=== PATIENT | male | born 1970 | race Hispanic/Latino ===

== ENCOUNTER 2018-04-10 07:02 | Day surgery (SDC) | payer MEDICAID ==
[2018-04-10] MEDS ORDERED: XYLOCAINE MPF 2% ONE (08:52)
[2018-04-10] MEDS ORDERED: DILAUDID ONE (08:54)
[2018-04-10] MEDS ORDERED: DIPRIVAN 10 MG/ML IV ONE ×2 (08:54→09:54)
[2018-04-10] MEDS ORDERED: NACL BACTERIOSTATIC INFILTRATI ONE (08:56)
[2018-04-10] MEDS ORDERED: ZOFRAN ONE (08:57)
[2018-04-10] MEDS ORDERED: PEPCID IV NR (09:00)
[2018-04-10] MEDS ORDERED: VERSED IV NR (09:00)
[2018-04-10] MEDS ORDERED: NACL 0.9% 1000 ML 1,000 ML IV SCH (09:00)
[2018-04-10] MEDS ORDERED: ANCEF/STERILE WATER 2 GM/20 ML IV NR (09:00)
--- NOTE | 2018-04-10 09:02 | XRay Report ---
AP ABDOMEN: HISTORY: Renal stone. The abdominal gas pattern is unremarkable. No masses or organomegaly is identified and there is no gross evidence of free air or fluid. There are numerous tiny calcifications overlying both kidney shadows consistent with multiple calyceal stones. No obvious calcifications over the course of the ureters. IMPRESSION: Bilateral nephrolithiasis.
[2018-04-10] MEDS ORDERED: PROAIR IH NR (09:30)
[2018-04-10] MEDS ORDERED: ROBINUL ONE (09:57)
[2018-04-10 11:42] VITALS: BP 138/82
--- NOTE | 2018-04-10 12:54 | Short Stay Summary ---
Short Stay Documentation Date of service: 04/10/18 - History H&P: obtained from office - Allergies and Medications Current Medications: Allergies codeine Allergy (Verified 04/01/18 17:11) Itching Home Medications Medication Instructions Recorded Confirmed Last Taken Type Tamsulosin [Flomax] 0.4 mg PO QDAY 04/01/18 04/10/18 04/08/18 History Oxycodone HCl/Acetaminophen 0.5 - 1 each PO Q6HR PRN #30 tablet 04/10/18 Unknown Rx [Percocet 10/325 mg] Sulfamethoxazole/Trimethoprim 1 each PO BID #10 tablet 04/10/18 Unknown Rx [Bactrim DS TAB] Active Medications Sodium Chloride (Nacl 0.9% 1000 Ml) 1,000 mls @ 100 mls/hr IV DIRECT LEONARD Last Admin: 04/10/18 09:00 Dose: 100 mls/hr Midazolam HCl (Versed) 2 mg IV PREOP NR Stop: 04/10/18 23:59 Last Admin: 04/10/18 09:05 Dose: 2 mg - Brief post op/procedure progress note Date of procedure: 04/10/18 Pre-op diagnosis: felipe renal sdtones left > right / uret Post-op diagnosis: same Procedure: left eswl Anesthesia: GETA Findings: stone vis Surgeon: COLLIN CARDONA Estimated blood loss: minimal Pathology: none Condition: stable - Hospital course Hospital course: or pacu home - Disposition Condition at discharge: Good Disposition: DC-01 TO HOME OR SELFCARE Short Stay Discharge Plan Activity: advance as tolerated Diet: advance as tolerated Additional Instructions: STRAIN ALL URINE. SAVE ANY SPECIMENS FOR TESTING. NO STRAINING TO VOID. CALL OFFICE AND CONFIRM DATE AND TIME FOR FOLLOWUP WITH SURGEON Follow up with: COLLIN CARDONA MD [Staff Physician] - 7 Days Prescriptions: Oxycodone HCl/Acetaminophen [Percocet 10/325 mg] 0.5 - 1 each PO Q6HR PRN #30 tablet PRN Reason: Pain Sulfamethoxazole/Trimethoprim [Bactrim DS TAB] 1 each PO BID #10 tablet
--- NOTE | 2018-04-20 18:56 | Operative Report ---
PREOPERATIVE DIAGNOSIS: Bilateral renal stones, left greater than right. POSTOPERATIVE DIAGNOSIS: Bilateral renal stones, left greater than right. PROCEDURE: Left renal ESWL. ANESTHESIA: General. FINDINGS: Stones visible with decreased density at the end of the procedure. SURGEON: Lai Donis MD. ESTIMATED BLOOD LOSS: Minimal. PATHOLOGY: None. CONDITION: Stable. IMPLANTS: None. COMPLICATIONS: None. CLINICAL INDICATIONS: The patient was counseled RCBA, antibiotics, SCDs. He desired to proceed with this procedure, understanding the risks. DESCRIPTION OF PROCEDURE: The patient was transferred to the OR suite in supine position, anesthesia was used to target the stone with an F2. There was moderate visualization of the stone on the left side. A total of 2500 shocks were delivered, maximum of 5.0 kilovolts. Intermittent repositioning done with biplanar fluoroscopy as necessary. End of the procedure unable to clearly visualize the stone well. The patient was awakened and transferred to PACU in good and stable condition. JOB# [id number] ATS/NTS
== END 2018-04-10 12:34 | disposition home or self-care (01) ==
LOC: OR 07:02
PROVIDERS: ATTEND Urology
DX: N20.0 Calculus of kidney (principal); I10 Essential (primary) hypertension; F32.9 Major depressive disorder, single episode, unspecified; K21.9 Gastro-esophageal reflux disease without esophagitis; G47.33 Obstructive sleep apnea (adult) (pediatric); F17.210 Nicotine dependence, cigarettes, uncomplicated; Z88.5 Allergy status to narcotic agent; Z98.890 Other specified postprocedural states
CPT/HCPCS: 74018; J0690; J1170; J2250; J2405; J2704; J7030